=== PATIENT | male | born 1960 | race Caucasian/White ===

== ENCOUNTER → 2022-11-22 | Outpatient (CLI) | payer BC | LOC: M CARPUL 07:29 | PROVIDERS: ATTEND Physician Assistant | DX: R05.9 Cough, unspecified (principal) ==

== ENCOUNTER → 2022-12-07 | Outpatient (CLI) | payer BC | LOC: M RAD 13:35 | PROVIDERS: ATTEND Physician Assistant | DX: R05.9 Cough, unspecified (principal) ==

== ENCOUNTER → 2023-03-19 | Outpatient (CLI) | payer BC ==
[~2023-03-19] MED LIST: METHACHOLINE KIT INH ONE
== END ==
LOC: M CARPUL 07:50
PROVIDERS: ATTEND Physician Assistant
DX: R05.9 Cough, unspecified (principal)

== ENCOUNTER 2023-04-05 11:43 | Day surgery (SDC) | payer BC ==
[~2023-04-05] VITALS: Ht 172.7 cm; Wt 90.3 kg
[~2023-04-05 11:43] MED LIST changes: +ALBU2.5V10 INH; +AMLO1TAB25 PO; +AMOX500T2 PO; +ATOR1TAB21 PO; +AZEL1SPR3; +CLAR10CA3 PO; +HYDR50TAB PO; -METHACHOLINE KIT INH ONE; +MULLEIN PO; +NASA1SPR; +VITA500C19 PO
[2023-04-05] MEDS ORDERED: LR 1,000 ML IV SCH ×3 (12:20→17:35)
[2023-04-05] MEDS ORDERED: METHYLENE BLUE 0.5% (5MG/ML) 10 ML AMP (PROVAYBLUE) As Ordered ONE (13:39)
[2023-04-05] MEDS ORDERED: LIDOCAINE W/EPINEPHRINE 1% 20ML VIAL As Ordered ONE (13:39)
[2023-04-05] MEDS ORDERED: COCAINE 4% 4ML NASAL SOLUTION BTL As Ordered ONE (13:39)
[2023-04-05] MEDS ORDERED: ONDANSETRON 4MG 2ML VIAL As Ordered ONE (13:42)
[2023-04-05] MEDS ORDERED: fentaNYL 250 MCG/5 ML INJECTION As Ordered ONE (13:42)
[2023-04-05] MEDS ORDERED: propofoL 200 MG/20 ML VIAL As Ordered ONE (13:42)
[2023-04-05] MEDS ORDERED: LIDOCAINE 2% 100MG/5ML SDV (FOR ANES.) As Ordered ONE (13:42)
[2023-04-05] MEDS ORDERED: ROCURONIUM BROMIDE 50MG/5ML VIAL As Ordered ONE (13:42)
[2023-04-05] MEDS ORDERED: MIDAZOLAM INJ 2MG/2ML VIAL As Ordered ONE (13:42)
[2023-04-05] MEDS ORDERED: LACRILUBE (AKWA TEARS) OPHTH OINT 3.5GM As Ordered ONE (13:43)
[2023-04-05] MEDS: OXYMETAZOLINE 0.05% NASAL SPRAY (AFRIN) As Ordered ONE ×2 (15:06→15:33)
[2023-04-05] MEDS ORDERED: HYDROmorphone HCL 2MG/ML 1ML VIAL As Ordered ONE (15:07)
[2023-04-05] MEDS ORDERED: LABETALOL 100MG/20ML VIAL As Ordered ONE (15:11)
[2023-04-05] MEDS ORDERED: OXYMETAZOLINE 0.05% NASAL SPRAY (AFRIN) As Ordered ONE ×2 (15:20→16:47)
[2023-04-05] MEDS ORDERED: GLYCOPYRROLATE INJ 0.2 MG/ML 2 ML VIAL As Ordered ONE (15:23)
[2023-04-05] MEDS ORDERED: SEVOFLURANE INHAL SOLN 250 ML BTL As Ordered ONE (15:48)
[2023-04-05] MEDS ORDERED: SUGAMMADEX SODIUM 500 MG/5 ML VIAL (BRIDION) As Ordered ONE (16:01)
[2023-04-05] MEDS ORDERED: ACETAMINOPHEN 1000MG 100ML IV BAG As Ordered ONE (16:01)
[2023-04-05] MEDS ORDERED: fentaNYL 100 MCG/2 ML INJECTION IV PRN (16:55)
[2023-04-05] MEDS ORDERED: ONDANSETRON 4MG 2ML VIAL IV PRN ×2 (16:55→17:35)
[2023-04-05] MEDS ORDERED: oxyCODONE 5MG TAB PO PRN (17:05)
[2023-04-05] MEDS ORDERED: ANEXSIA, NORCO 7.5MG/325MG TABLET(HYDROCODONE/APAP) PO PRN (17:35)
[2023-04-05 18:30] VITALS: BP 152/78; TEMP 97.5; O2SAT 97
== END 2023-04-05 18:33 | disposition home or self-care (01) ==
LOC: M SDC 11:43
PROVIDERS: ATTEND Otolaryngology
DX: J32.9 Chronic sinusitis, unspecified (principal); J34.2 Deviated nasal septum; J34.3 Hypertrophy of nasal turbinates; E78.00 Pure hypercholesterolemia, unspecified; I10 Essential (primary) hypertension; J45.909 Unspecified asthma, uncomplicated; Z87.891 Personal history of nicotine dependence; Z79.51 Long term (current) use of inhaled steroids; Z79.899 Other long term (current) drug therapy
CPT/HCPCS: 30140; 30520; 31255; 31267; 61782; 88305; 93005; A6024; C9143; J0131; J1100; J1170; J1920; J2250; J2405; J3010; Q9968

== ENCOUNTER → 2023-04-11 | Outpatient (CLI) | payer BC | LOC: M RAD 08:02 | PROVIDERS: ATTEND Physician Assistant | DX: R91.8 Other nonspecific abnormal finding of lung field (principal) ==

== ENCOUNTER → 2024-05-15 | Outpatient (CLI) | payer BC | LOC: M RAD 15:07 | PROVIDERS: ATTEND Physician Assistant | DX: R91.8 Other nonspecific abnormal finding of lung field (principal) ==